=== PATIENT | female | born 1995 | race Caucasian/White ===

== ENCOUNTER 2023-08-21 16:39 | Emergency (ER) | payer MEDICARE, MEDICAID, SELFPAY ==
[2023-08-21 16:50] VITALS: BP 119/61; BP 136/82; PULSE 112; PULSE 114; RESP 18; TEMP 36.5; O2SAT 100; O2SAT 99; BMI 36.5
--- NOTE | 2023-08-21 16:50 | ED.ALLEREA ---
HPI - Allergic Reaction General Chief complaint: Allergic Reaction Stated complaint: ALLERGIC REACTION Time Seen by Provider: 08/21/23 16:46 Source: patient Mode of arrival: EMS Limitations: no limitations History of Present Illness ED Provider: fay HPI narrative: Patient history of significant allergic reactions secondary to pollens entries outside last severe reaction was 2 years ago side noticed tingling of the lips with facial swelling similar to that in the past had difficulty in breathing took 2 Benadryl 4 hours ago and EpiPen just prior to arrival EMS gave another IV 25 mg of Benadryl and albuterol treatment, patient is started feeling better Related Data Allergies Allergy/AdvReac Type Severity Reaction Status Date / Time el[place] [cherries] Allergy Unknown Verified 08/21/23 16:54 shellfish derived Allergy Anaphylaxis Verified 08/21/23 16:54 tree and shrub pollen Allergy Unknown Verified 08/21/23 16:54 Review of Systems Review of Systems: Yes all other systems are reviewed and are negative PMFSH Social History Social History Advance Directives: No Advance Directives Information Provided: No Physical Exam ED Vital Signs: Vital Signs - 24 hr 08/21/23 16:50 08/21/23 17:22 08/21/23 18:13 Temperature 97.7 F 98.1 F 98.5 F Pulse Rate 112 H 105 H 102 H Respiratory Rate 18 14 20 Blood Pressure 119/61 117/61 121/65 Pulse Oximetry 99 93 99 Oxygen Delivery Method Room Air Room Air Room Air BMI result Body Mass Index 36.5 Appearance: Alert. Oriented X3. No acute distress. Eyes: PERRLA, No Nystagmus ENT: Pharynx normal. Oral Mucosa moist normal lives normal uvula no stridor Neck: Normal inspection. Neck supple. CVS: Normal heart rate and rhythm. Pulses normal. Respiratory: No respiratory distress. Equal air entry bilateral, no wheezing/rales/rhonchi Abdomen: Soft and nontender. Bowel sounds are present, no mass palpable, no CVA tenderness Skin: Skin warm and dry. Normal skin color. Normal skin turgor. Extremities: No lower extremity edema. No calf tenderness Neuro: Oriented X 3. Medical Decision Making Medical Decision Making MDM Narrative: Patient's allergic reaction degrees came here for similar duration upon arrival only slight itching and subjective tingling of the lip noticed already received EpiPen at home will discharge patient home advised to follow with PCP and keep an eye on reaction Discharge Plan Discharge Clinical Impression: Allergic reaction Patient Disposition: Home, Self-Care Instructions: General Allergic Reaction (ED) Additional Instructions: Care and cautions as adv Continue medication as prescribed by your specialist Discharge Date/Time: 08/21/23 18:17 Print Language: Persian
[2023-08-21 17:22] VITALS: BP 117/61; PULSE 105; RESP 14; TEMP 36.7; O2SAT 93
[2023-08-21 18:13] VITALS: BP 121/65; PULSE 102; RESP 20; TEMP 36.9; O2SAT 99
== END 2023-08-21 18:17 | disposition home or self-care (01) ==
PROVIDERS: Emergency Provider Internal Medicine
DX: L50.0 Allergic urticaria (principal); R06.02 Shortness of breath
CPT/HCPCS: 99283

== ENCOUNTER 2024-05-02 18:53 | Emergency (ER) | payer MEDICARE, MEDICAID, SELFPAY ==
[2024-05-02 19:57] VITALS: BP 135/89; PULSE 96; RESP 16; TEMP 36.3; O2SAT 99; BMI 35.1
--- NOTE | 2024-05-02 19:58 | ED_ITS ---
HPI - Headache General Chief Complaint: Headache Stated Complaint: Migraine 8 days Related Data Allergies Allergy/AdvReac Type Severity Reaction Status Date / Time amphetamine [From Adderall] Allergy Swelling Verified 05/02/24 19:58 azathioprine [From Imuran] Allergy Swelling Verified 05/02/24 19:58 bupropion [From Wellbutrin] Allergy Swelling Verified 05/02/24 19:58 [place]more [cherries] Allergy Unknown Verified 05/02/24 19:58 dextroamphetamine Allergy Swelling Verified 05/02/24 19:58 [From Adderall] lisdexamfetamine Allergy Swelling Verified 05/02/24 19:58 [From Vyvanse] lorazepam [From Ativan] Allergy Swelling Verified 05/02/24 19:58 methylphenidate Allergy Swelling Verified 05/02/24 19:58 [From Concerta] shellfish derived Allergy Anaphylaxis Verified 05/02/24 19:58 tree and shrub pollen Allergy Unknown Verified 05/02/24 19:58 [facility] Social History Social History Advance Directives: No Advance Directives Information Provided: No Do you have a plan to hurt others: No Plan Physical Exam Vital Signs: Vital Signs: Last Vital Signs Temp 97.4 F 05/02/24 19:57 Pulse 96 05/02/24 19:57 Resp 16 05/02/24 19:57 BP 135/89 05/02/24 19:57 Pulse Ox 99 05/02/24 19:57 O2 Del Method Room Air 05/02/24 19:57 BMI result Body Mass Index 35.1 Course Course Course Narrative: This is a Rapid Medical Examination (RME) performed by Melecio Don PA-C in triage. Full HPI, ROS, assessment and treatment plan per primary provider in the Main ED. 28 yo female hx migraines here for eval of migraine x7-8 days. typically takes tramadol, trialed this last week with improvement however cannot take this and go to work so she has not been taking it consistently. +photo and phonofobia. no trauma/injury. saw pcp - tested negative for covid/ flu/ rsv Plan: labs, ct Reevaluation(s) Reevaluation #1: Patient left the emergency department before myself or any of the other clinicians could review or explain physical exam findings, test results, need or lack there of for additional testing, treatment options, or a treatment plan. Discharge Plan Discharge Clinical Impression: Migraine Patient Disposition: Left W/O Completing Treatment Discharge Date/Time: 05/02/24 22:59
--- OUTSIDE RECORDS SUMMARY | 2024-05-02 21:55 | XMS_ITS | Data Portability ---
Author Organization [facility], [id number] Address [address] [place] [address] Care Team Providers Care Dna Analyst Name Role Phone [facility] Primary Care Provider [phone] Assessment No assessment recorded. Plan of Treatment Reminders Order Date Submit Date Provider Last Modified By Organization Details Last Modified Time Details Appointments None recorded. Lab None recorded. Referral None recorded. Procedures None recorded. Surgeries None recorded. Imaging None recorded. Medication Orders Aplisol 5 tub. unit/0.1 mL intradermal injection solution 2023 024 [email or web address] [facility]/Pharmacy #[id number], [address] [place], [address], 4 19:52:41 naproxen 500 mg tablet 2022 023 [facility]/Pharmacy #[id number], [address] [place], [address], 3 09:29:51 fexofenadin e-pseudoeph edrine ER 180 mg-240 mg tablet,ext. release 24 hr 2022 023 [email or web address] [facility]/Pharmacy #[id number], [address] [place], [address], 3 08:45:54 prednisone 20 mg tablet 2022 023 [facility]/Pharmacy #[id number], [address] [place], [address], 3 08:43:12 Patient TargetsNo targets recorded. Patient Instructions Encounter Date Encounter Id Patient Instructions Last Modified By Organization Details Last Modified Time 05/10/2022 [id number] An ear infection may start with a cold and affect the middle ear (otitis media). It can hurt a lot. Most ear infections clear up on their own in a couple of days and do not need antibiotics. Also, antibiotics do not work against viruses, which may be the cause of your infection. Regular doses of pain relievers are the best way to reduce your fever and help you feel better. How can you care for yourself at home? Take pain medicines exactly as directed. If the doctor gave you a prescription medicine for pain, take it as prescribed. If you are not taking a prescription pain medicine, take an vhwn-yid-kdczauy medicine, such as acetaminophen (Tylenol), ibuprofen (Advil, Motrin), or naproxen (Aleve). Read and follow all instructions on the label. Do not take two or more pain medicines at the same time unless the doctor told you to. Many pain medicines have acetaminophen, which is Tylenol. Too much acetaminophen (Tylenol) can be harmful. Plan to take a full dose of pain reliever before bedtime. Getting enough sleep will help you get better. Try a warm, moist face cloth on the ear. It may help relieve pain. If your doctor prescribed antibiotics, take them as directed. Do not stop taking them just because you feel better. You need to take the full course of antibiotics. Not available 05/10/2022 08:37:03 Sinusitis is an infection of the lining of the sinus cavities in your head. Sinusitis often follows a cold. It causes pain and pressure in your head and face. In most cases, sinusitis gets better on its own in 1 to 2 weeks. But some mild symptoms may last for several weeks. Sometimes antibiotics are needed. if you are having problems. It's also a good idea to know your test results and keep a list of the medicines you take. How can you care for yourself at home? Take an avsq-fgx-pzitufq pain medicine. Avoid Ibuprofen, Aleve and Aspirin if . If the doctor prescribed antibiotics, take them as directed. Do not stop taking them just because you feel better. You need to take the full course of antibiotics. Be careful when taking zxsc-jot-ipuvmtj cold or influenza (flu) medicines and Tylenol at the same time. Many of these medicines have acetaminophen, which is Tylenol. Read the labels to make sure that you are not taking more than the recommended dose. Too much acetaminophen (Tylenol) can be harmful. Breathe warm, moist air from a steamy shower, a hot bath, or a sink filled with hot water. Avoid cold, dry air. Using a humidifier in your home may help. Follow the directions for cleaning the machine. Use saline (saltwater) nasal washes. This can help keep your nasal passages open and wash out mucus and bacteria. You can buy saline nose drops at a grocery store or drugstore. Or you can make your own at home by adding 1 teaspoon (5 millilitres) of salt and 1 teaspoon (5 millilitres) of baking soda to 2 cups (500 mL) of distilled water. If you make your own, fill a bulb syringe with the solution, insert the tip into your nostril, and squeeze gently. Blow your nose. Put a hot, wet towel or a warm gel pack on your face 3 or 4 times a day for 5 to 10 minutes each time. Try a decongestant nasal spray like oxymetazoline (Drixoral). Do not use it for more than 3 days in a row. Using it for more than 3 days can make your congestion worse. Not available 05/10/2022 08:36:53 08/26/2022 [id number] wrist sprain: ca re instructions [email or web address] Not available 08/26/2022 09:30:59 Reason for Referral None Reported. Problems Name Problem SNOMED Code Status Onset Date Resolution Date Notes Provider Name and Address Organization Details Recorded Time Polycystic ovary syndrome 356650481 Active 2022 MERARI CASTANEDA null, PA - [facility] 3 08:49:22 Postural orthostatic tachycardia syndrome 699467593 Active 2022 Teresa Leonard null PA - [facility] 3 08:17:41 Crohn's disease 63610014 Active 2022 Teresagissel Leonard null, PA - [facility] 3 08:17:52 Posttraumatic stress disorder 93194384 Active 2022 Teresa Aisha null, PA - [facility] 3 08:17:56 Asthma 409226868 Active 2022 Teresa [place] null, PA - [facility] 3 08:18:00 Depressive disorder 96843052 Active 2022 Teresa [place] null, PA - [facility] 3 08:18:15 Anxiety 33507597 Active 2022 Teresa [place] null, PA - [facility] 3 08:18:22 Problem Notes None recorded. Procedures Surgical History Date Name Laterality Status Provider Name and Address Organization Details Recorded Time Knee arthroscopy/surg hamida completed Teresa [place] PA - [facility] 05/10/2022 08:18:52 procedure on lymph node completed Teresa [place] PA - [facility] 05/10/2022 08:19:03 reduction rhinoplasty completed Teresa [place] PA - [facility] 05/10/2022 08:19:13 hernia repair completed Teresa Aisha PA - [facility] 05/10/2022 08:19:21 Imaging Results None recorded. Procedure Notes None recorded. Medical Equipment None Reported. Allergies Allergen ID Allergen Name Allergen Category Reaction Reaction Severity Criticality Documentation Date Start Date Code Code System Note Provider Name and Address Organization Details Recorded Time 389436 clonidine medicatio n anaphylax is Not available [facility] 05/10/2022 2599 RxNorm Teresa Aisha null, PA - [facility] 3 08:14:34 [id number] [place] allergeni c extract food,medi cation angioedem a Not available Not available 08/26/2022 40916 1 RxNorm MERARI TONYA null, PA - [facility] 3 08:44:18 000772 Humira medicatio n other Not available Not available 08/26/2022 62938 4 RxNorm MERARI TONYA null, PA - [facility] 3 08:44:40 [id number] Imuran medicatio n other Not available Not available 08/26/202290509 9 RxNorm MERARI TONYA null, PA - [facility] 3 08:45:00 Medications Name Sig Start Date Stop Date Status Note LastModified by Organization Details LastModified Time BD Regular Bevel [place] 27 gauge x 1/2 active Not Available Not Available Not Available verapamil ER (SR) 120 mg tablet,ex tended release TAKE 1 TABLET BY MOUTH EVERYDAY AT BEDTIME 05/10 completed Not Available Not Available Not Available amoxicill in 500 mg capsule TAKE 2 CAPSULES (1,000 MG TOTAL) BY MOUTH DAILY FOR 9 DAYS. active Not Available Not Available No t Available metformin 500 mg tablet TAKE 1 TABLET BY MOUTH EVERY DAY 08/26 completed Not Available Not Available Not Available prednison e 10 mg tablet PLEASE SEE ATTACHED FOR DETAILED DIRECTIO NS active Not Available Not Available No t Available verapamil ER 360 mg 24 hr capsule,e xtended release TAKE 1 CAPSULE (360 MG TOTAL) BY MOUTH NIGHTLY AT BEDTIME. active Not Available Not Available No t Available trazodone 50 mg tablet TAKE 1/2 A TABLET BY MOUTH DAILY NEEDED AT BEDTIME active Not Available Not Available No t Available cetirizin e 10 mg tablet TAKE 1 TABLET BY MOUTH EVERY DAY IN THE MORNING active Not Available Not Available No t Available azithromy stone 250 mg tablet TAKE 1 TABLET BY MOUTH DAILY FOR 4 DAYS. 05/10 completed Not Available Not Available Not Available benzonata te 200 mg capsule TAKE 1 CAPSULE BY MOUTH THREE TIMES A DAY NEEDED 05/10 completed Not Available Not Available Not Available valacyclo vir 1 gram tablet TAKE 1 TABLET BY MOUTH THREE TIMES A DAY FOR 10 DAYS active Not Available Not Available No t Available prazosin 1 mg capsule TAKE 1 TO 2 CAPSULES BY MOUTH AT BEDTIME active Not Available Not Available No t Available sucralfat e 100 mg/mL oral suspensio n TAKE 10 ML (1 G TOTAL) BY MOUTH 4 (FOUR) TIMES A DAY FOR 7 DAYS. active Not Available Not Available No t Available promethaz ine 12.5 mg tablet TAKE 1 TABLET BY MOUTH EVERY 6 HOURS NEEDED FOR NAUSEA. active Not Available Not Available No t Available FreeStyle Lancets 28 gauge USE TWICE DAILY DIRECTED FOR MONITORI NG GLUCOSE active Not Available Not Available No t Available famotidin e 40 mg tablet TAKE 1 TABLET BY MOUTH TWICE A DAY active Not Available Not Available No t Available Aplisol 5 tub. unit/0.1 mL intraderm al injection solution Inject 0.1 mL by intrader mal route. 2023 active Billable units for PPD is one. Units are not the dose. Not Available Not Available Not Available prednison e 20 mg tablet TAKE 2 TABLETS BY MOUTH EVERY DAY FOR 4 DAYS active Not Available Not Available No t Available BD Insulin Syringe 1 mL 25 gauge x 5/8 USE 1 SYRINGE TO INJECT SUBCUTAN EOUSLY B 12 ONCE EVERY 30 DAYS active Not Available Not Available No t Available Pregnyl 10,000 unit intramusc ular solution active Not Available Not Available Not Available metformin 850 mg tablet TAKE 1 TABLET BY MOUTH EVERY DAY active Not Available Not Available No t Available topiramat e 25 mg tablet TAKE 1 TAB NIGHTLY FOR 1 WEEK THEN INCREASE TO 1 TAB IN AM & 1 IN PM active Not Available Not Available No t Available hydroxyzi ne HCl 50 mg tablet TAKE 1 TABLET EVERY DAY NEEDED active Not Available Not Available No t Available acetamino phen 300 mg-codein e 30 mg tablet TAKE 1 TABLET BY MOUTH EVERY 8 HOURS FOR 7 DAYS 05/10 completed Not Available Not Available Not Available quetiapin e 100 mg tablet TAKE 1 TABLET BY MOUTH EVERYDAY AT BEDTIME active Not Available Not Available No t Available acetamino phen 500 mg tablet TAKE 2 TABLETS BY MOUTH 3 TIMES A DAY NEEDED FOR PAIN FOR 10 DAYS active Not Available Not Available No t Available lidocaine -prilocai ne 2.5 %-2.5 % topical cream APPLY TO PORT EXTERNAL LY EVERY 4 WEEKS BEFORE INFUSION S active Not Available Not Available No t Available lamotrigi ne 25 mg tablet TAKE 3 TABLETS BY MOUTH TWICE A DAY active Not Available Not Available No t Available verapamil ER 180 mg 24 hr capsule,e xtended release TAKE 1 CAPSULE BY MOUTH NIGHTLY AT BEDTIME. active Not Available Not Available No t Available oxycodone -acetamin ophen 5 mg-325 mg tablet Take 1 tablet every 6 hours by oral route. active Not Available Not Available No t Available hydrocort isone 2.5 % topical cream with perineal applicato r APPLY RECTALLY TWICE A DAY FOR 14 DAYS active Not Available Not Available No t Available famotidin e 20 mg tablet TAKE 1 TABLET BY MOUTH TWICE A DAY active Not Available Not Available No t Available hydrocort isone-apolinar tic acid 1 %-2 % ear drops INSTILL 2 DROPS INTO AFFECTED EAR(S) 4 TIMES A DAY active Not Available Not Available No t Available trazodone 100 mg tablet TAKE 2 TABLETS BY MOUTH AT BEDTIME active Not Available Not Available No t Available baclofen 10 mg tablet TAKE 1/2 TABLET (5MG) BY MOUTH 2 TIMES A DAY.TAKE BEFORE MEALS active Not Available Not Available No t Available benzonata te 100 mg capsule TAKE 1 CAPSULE BY MOUTH THREE TIMES A DAY NEEDED FOR COUGH 05/10 completed Not Available Not Available Not Available hyoscyami ne sulfate 0.125 mg tablet TAKE 4 TABLETS BY MOUTH ONCE A DAY FOR 1 DAY 05/10 completed Not Available Not Available Not Available cyanocoba yumiko (vit B-12) 1,000 mcg/mL injection solution INJECT 1 ML (1000 MCG TOTAL) UNDER THE SKIN EVERY 30 DAYS active Not Available Not Available No t Available oseltamiv ir 75 mg capsule TAKE 1 CAPSULE BY MOUTH TWO TIMES A DAY active Not Available Not Available No t Available esomepraz ole magnesium 40 mg capsule,d elayed release TAKE 1 CAPSULE BY MOUTH TWICE A DAY FOR 30 DAYS active Not Available Not Available No t Available prednison e 50 mg tablet TAKE 1 TABLET BY MOUTH EVERY DAY FOR 5 DAYS active Not Available Not Available No t Available hyoscyami ne 0.125 mg sublingua l tablet TAKE 4 TABLETS DISSOLVE D IN MOUTH.BR ING TO RADIOLOG Y APPT WITH YOU 05/10 completed Not Available Not Available Not Available betametha sone dipropion ate 0.05 % topical cream APPLY TO AFFECTED AREA DAILY DIRECTED active Not Available Not Available No t Available mont[address]uka st 10 mg tablet TAKE 1 TABLET BY MOUTH EVERY DAY active Not Available Not Available No t Available epinephri ne 0.3 mg/0.3 mL injection , auto-inje ctor USE DIRECTED FOR ANAPHYLA XIS AND CALL 911 NEEDED active Not Available Not Available No t Available albuterol sulfate HFA 90 mcg/actua tion aerosol inhaler INHALE 2 PUFFS BY MOUTH INTO LUNGS EVERY 4 HOURS active Not Available Not Available No t Available BD Luer-Divine Syringe 3 mL 18 x 1 1/2 active Not Available Not Available Not Available fludrocor tisone 0.1 mg tablet TAKE 1 TABLET BY MOUTH EVERY DAY active Not Available Not Available No t Available lamotrigi ne 100 mg tablet TAKE 1 TABLET BY MOUTH EVERYDAY AT BEDTIME active Not Available Not Available No t Available Clomid 50 mg tablet active Not Available Not Available No t Available prazosin 2 mg capsule TAKE 1 CAPSULE BY MOUTH EVERYDAY AT BEDTIME active Not Available Not Available No t Available naproxen 500 mg tablet Take 1 tablet twice a day by oral route as directed for 10 days. 2022 active Not Available Not Available Not Avai lable metoclopr amide 10 mg tablet TAKE 1 TABLET BY MOUTH UP TO 4 TIMES A DAY active Not Available Not Available No t Available verapamil ER 240 mg 24 hr capsule,e xtended release TAKE 1 CAPSULE BY MOUTH EVERY DAY AT NIGHT AT BEDTIME (240 MG TOTAL) active Not Available Not Available No t Available amoxicill in 875 mg-potass ium clavulana te 125 mg tablet TAKE 1 TABLET BY MOUTH EVERY 12 HOURS FOR 7 DAYS 05/10 completed Not Available Not Available Not Available oxycodone 5 mg tablet 08/26 completed Not Available Not Available Not Available neomycin- polymyxin -hydrocor t 3.5 mg-10,000 unit/mL-1 % ear drops,issac p INSTILL 4 DROPS INTO AFFECTED EAR(S) 3 TIMES PER DAY FOR 7 active Not Available Not Available No t Available cyclobenz aprine 5 mg tablet TAKE 1 TABLET (ORAL) 3 TIMES PER DAY (MUSCLE SPASM) FOR 10 DAYS active Not Available Not Available No t Available Ovidrel 250 mcg/0.5 mL subcutane ous syringe active Not Available Not Available Not Available Alcohol Prep Pads USE TWICE DAILY DIRECTED FOR MONITORI NG GLUCOSE active Not Available Not Available No t Available duloxetin e 30 mg capsule,d elayed release TAKE 1 CAPSULE ALONG WITH THE 60 MG FOR A TOTAL DAILY DOSE OF 90 MG active Not Available Not Available No t Available duloxetin e 60 mg capsule,d elayed release TAKE 1 CAPSULE BY MOUTH EVERY DAY IN THE MORNING active Not Available Not Available No t Available Molly-D 24 Hour 180 mg-240 mg tablet,ex tended release TAKE 1 TABLET BY MOUTH EVERY EVENING FOR 10 DAYS 08/26 completed Not Available Not Available Not Available sodium chloride 1,000 mg soluble tablet TAKE 1 TABLET BY MOUTH 3 TIMES A DAY. active Not Available Not Available No t Available paliperid one ER 6 mg tablet,ex tended release 24 hr TAKE 1 TABLET BY MOUTH EVERY DAY AT NIGHT 05/10 completed Not Available Not Available Not Available FreeStyle Lite Meter kit USE TWICE DAILY DIRECTED FOR MONITORI NG GLUCOSE active Not Available Not Available No t Available FreeStyle Lite Strips USE TWICE DAILY DIRECTED FOR MONITORI NG GLUCOSE active Not Available Not Available No t Available Entyvio 300 mg intraveno us solution active Not Available Not Available Not Available Breo Ellipta 200 mcg-25 mcg/dose powder for inhalatio n TAKE 1 PUFF BY MOUTH EVERY DAY active Not Available Not Available No t Available Skyrizi 360 mg/2.4 mL (150 mg/mL) subcutane ous wearable injector active Not Available Not Available Not Available Voquezna 10 mg tablet TAKE 1 TABLET BY MOUTH EVERY DAY active Not Available Not Available No t Available Vitals Date Recorded Body height Body mass index (BMI) Body weight Pain severity - 0-10 verbal numeric rating [Score] - Reported Oxygen saturation Oxygen saturation in Arterial blood by Pulse oximetry Heart rate Respiratory rate Body temperature Systolic blood pressure Diastolic blood pressure Provider Name and Address Organization Details Last Updated DateTime 3 160.02 cm 35.4 kg/m2 07215.4 7 g 8 99 % 99 % 94 /min 18 /min 98.1 [degF] 133 mm[Hg] 88 mm[Hg] MERARI CASTANEDA PA - [facility] 3 08:52:53 Date Recorded Body height Body mass index (BMI) Body weight Pain severity - 0-10 verbal numeric rating [Score] - Reported Respiratory rate Body temperature Heart rate Oxygen saturation Oxygen saturation in Arterial blood by Pulse oximetry Systolic blood pressure Diastolic blood pressure Provider Name and Address Organization Details Last Updated DateTime 3 160.02 cm 35.1 kg/m2 95887.2 9 g 0 18 /min 97.7 [degF] 98 /min 98 % 98 % 116 mm[Hg] 62 mm[Hg] Teresa Leonard PA [email or web address] [facility] 3 08:21:03 Social History Question Answer Notes LastModified by Organizat ion Details LastModified Time Tobacco Smoking Status Never Smoker Teresa zuñiga PA - [facility] 05/10/2022 08:18:44 What Is Your Level Of Alcohol Consumption? None Information not available 05/10/2022 Have You Had Direct Contact, Or Contact During Intimacy, With Monkeypox Rash, Scabs, Or Body Fluids From A Person With Monkeypox? No Information not available 05/10/2022 Do You Use Any Illicit Or Recreational Drugs? No Information not available 05/10/2022 Have You Recently Traveled Abroad? No Information not available 05/10/2022 Do You Or Have You Ever Used Any Other Forms Of Tobacco Or Nicotine? No Information not available 05/10/2022 Sex: Unknown Functional Status None recorded. Mental Status None recorded. Family History Relationship Description Onset Age of this Age Resolved Age Notes LastModified by Organization Details LastModified Time Father No current problems or disability Not available 05/10 08:18:27 Mother No current problems or disability Not available 05/10 08:18:27 Medical History No medical history recorded. Gynecological History Statement/Question Response Date of LMP 08/21/2022 Is there any chance of ? No Obstetrics History GPAL:G 0 P 0 0 0 0 Immunizations Vaccine Type Date Status Note Provider Nam e and Address Organization Details Recorded Time Influenza, split virus, quadrivalent, preservative 8 completed Teresa [place] null, PA - [facility] 05/10/2022 08:14:00 Influenza, split virus, quadrivalent, preservative 0 completed Teersa [place] null, PA - [facility] 05/10/2022 08:14:00 Hib, unspecified formulation 5 completed Teresa [place] null, PA - [facility] 05/10/2022 08:14:00 Hib, unspecified formulation 5 completed Teresa Aisha null, PA - [facility] 05/10/2022 08:14:00 Hib, unspecified formulation 6 completed Teresa Aisha null, PA - [facility] 05/10/2022 08:14:00 Hib, unspecified formulation 5 completed Teresa [place] null, PA - [facility] 05/10/2022 08:14:00 MMR 0 completed Teresa [place] null, PA - [facility] 05/10/2022 08:14:00 MMR 6 completed Teresa [place] null, PA - [facility] 05/10/2022 08:14:00 COVID-19, mRNA, LNP-S, PF, 30 mcg/0.3 mL dose 1 completed Teresa [place] null, PA - [facility] 05/10/2022 08:14:00 COVID-19, mRNA, LNP-S, PF, 30 mcg/0.3 mL dose 1 completed Teresa [place] null, PA - [facility] 05/10/2022 08:14:00 COVID-19, mRNA, LNP-S, PF, 30 mcg/0.3 mL dose 1 completed Teresa [place] null, PA - [facility] 05/10/2022 08:14:00 COVID-19, mRNA, LNP-S, PF, 30 mcg/0.3 mL dose, felicity-sucrose 2 completed Teresa [place] null, PA - [facility] 05/10/2022 08:14:00 pneumococcal polysaccharide PPV23 4 completed Teresa [place] null, PA - [facility] 05/10/2022 08:14:00 influenza, unspecified formulation 8 completed Teresa [place] null, PA - [facility] 05/10/2022 08:14:00 influenza, unspecified formulation 7 completed Teresa Aisha null, PA - [facility] 05/10/2022 08:14:00 Tdap 9 completed Teresa Aisha null, PA - [facility] 05/10/2022 08:14:01 varicella 0 completed Teresa Aisha null, PA - [facility] 05/10/2022 08:14:01 DTP 0 completed Teresa [place] null, PA - [facility] 05/10/2022 08:14:01 DTP 5 completed Teresa Aisha null, PA - [facility] 05/10/2022 08:14:01 DTP 5 completed Teresa [place] null, PA - [facility] 05/10/2022 08:14:01 DTP 6 completed Teresa [place] null, PA - [facility] 05/10/2022 08:14:01 DTP 5 completed Teresa Aisha null, PA - [facility] 05/10/2022 08:14:01 Hep B, unspecified formulation 5 completed Teresa Aisha null, PA - [facility] 05/10/2022 08:14:01 Hep B, unspecified formulation 5 completed Teresa Aisha null, PA - [facility] 05/10/2022 08:14:01 Hep B, unspecified formulation 5 completed Teresa [place] null, PA - [facility] 05/10/2022 08:14:01 OPV 0 completed Teresa Aisha null, PA - [facility] 05/10/2022 08:14:01 OPV 5 completed Teresa [place] null, PA - [facility] 05/10/2022 08:14:01 OPV 5 completed Teresa Aisha null, PA - [facility] 05/10/2022 08:14:01 OPV 5 completed Teresa [place] null, PA - [facility] 05/10/2022 08:14:01 HPV, unspecified formulation 8 completed Teresa [place] null, PA - [facility] 05/10/2022 08:14:01 pneumococcal, unspecified formulation 4 completed Teresa Aisha null, PA - [facility] 05/10/2022 08:14:01 Influenza, split virus, trivalent, preservative 2 completed Teresa [place] null, PA - [facility] 05/10/2022 08:14:01 Influenza, split virus, trivalent, preservative 9 completed Teresa [place] null, PA - [facility] 05/10/2022 08:14:01 Influenza, split virus, trivalent, preservative 0 completed Teresa Aisha null, PA - [facility] 05/10/2022 08:14:01 Influenza, split virus, trivalent, PF 1 completed Teresa Aisha null, PA - [facility] 05/10/2022 08:14:01 Influenza, split virus, trivalent, PF 3 completed Teresa [place] null, PA - [facility] 05/10/2022 08:14:01 Influenza, split virus, trivalent, PF 4 completed Teresa [place] null, PA - [facility] 05/10/2022 08:14:01 HPV, quadrivalent 9 completed Teresa Aisha null, PA - [facility] 05/10/2022 08:14:01 HPV, quadrivalent 9 completed Teresa Aisha null, PA - [facility] 05/10/2022 08:14:01 Td (adult), 2 Lf tetanus toxoid, preservative free, adsorbed 9 completed Teresa Aisha null, PA - [facility] 05/10/2022 08:14:01 meningococcal MCV4P 9 completed Teresa Aisha null, PA - [facility] 05/10/2022 08:14:01 Influenza, split virus, quadrivalent, PF 2 completed Teresa Aisha null, PA - [facility] 05/10/2022 08:14:01 Influenza, split virus, quadrivalent, PF 1 completed Teresa [place] null, PA - [facility] 05/10/2022 08:14:01 Influenza, split virus, quadrivalent, PF 9 completed Teresa Aisha null, PA - [facility] 05/10/2022 08:14:01 Influenza, split virus, quadrivalent, PF 7 completed Teresa Aisha null, PA - [facility] 05/10/2022 08:14:01 Influenza, split virus, quadrivalent, PF 6 completed Teresa Aisha null, PA - [facility] 05/10/2022 08:14:01 Influenza, split virus, quadrivalent, PF 5 completed Teresa [place] null, PA - [facility] 05/10/2022 08:14:01 Influenza, split virus, quadrivalent, PF 0 completed Teresa Aisha null, PA - [facility] 05/10/2022 08:14:01 Past Encounters Encounter ID Performer Location Encounter Start Date Encounter Closed Date Diagnosis/Indication Diagnosis SNOMED-CT Code Diagnosis ICD10 Code Diagnosis Note [id number] [address] [facility] [address] 05/25/2019 16:32:04 05/25/2019 19:14:19 [id number] [address] [facility] [place] [address] 06/14/2017 12:35:22 06/14/2017 13:55:30 [id number] [address] [facility] [place] [address] 09/24/2018 08:44:05 09/24/2018 09:49:32 [id number] [address] [facility] [place] [address] 05/08/2018 08:15:41 05/08/2018 08:55:05 [id number] [address] [facility] [place] [address] 02/22/2019 08:15:53 02/22/2019 08:34:03 [id number] [address] [facility] [place] [address] 05/15/2018 08:08:15 05/15/2018 08:33:18 [id number] [address] [facility] [place] [address] 09/28/2018 13:41:41 09/28/2018 14:37:22 [id number] [address] [place] [address] 08/22/2018 15:47:12 08/22/2018 16:28:46 [id number] 20[address] Eric Sofia [address] [place] [address] 10/07/2020 16:37:23 10/07/2020 18:23:32 [id number] Johny Lewis NP 20995_Chi [facility] rojelior [address] [place] [address] 05/10/2022 08:06:49 05/10/2022 08:48:30 Acute sinusitis [id number] J01.90 Acute sero us otitis media of bilateral ears [id number] H65.03 [id number] Yoli Coley MD [address] [facility] [address] [place] [address] 08/26/2022 08:17:45 08/26/2022 09:51:39 Pain of left wrist [id number] M25.532 Likely a sprain with inflammati on of the wrist causing some nerve compressio n as the distributi on of pain is median nerve and similar to carpal tunnel.Nile l treat conservati vely with wrist split, Nsaids, and follow up ortho if no improvemen t.pain is also Ulnar side, if continues will need to rule out TFCC ligament injury [id number] NICK BURNETT [address] [address] 01/19/2024 14:31:23 01/19/2024 15:14:55 Tuberculosis screening [id number] Z11.1 Health Concerns Section Related Observation LastModified by Organization Detai ls LastModified Time None Recorded Concern Status LastModified by Organization Details LastModified Time None Recorded Advance Directives Directive None Recorded Payers Encounter Date Sequence Insurance Name Policy Number Policy Aguirre Covered Member ID Aguirre Member ID Guarantor Name 05/25/2019 1 [place] [employer] Marichuy Wolf [id number] Marichuy Wolf 10/07/2020 1 [place] [employer] Marichuy Wolf [id number] Marichuy Wolf 05/10/2022 1 [place] [facility] Marichuy Wolf [id number] Marichuy Wolf 05/10/2022 2 [place] [facility] Marichuy Damon [id number] Marichuy Wolf 08/26/2022 1 [place] [facility] Marichuy Wolf [id number] Marichuy Wolf 08/26/2022 2 [place] [facility] Marichuy Damon [id number] Marichuy Wolf 01/19/2024 [employer] [id number] Marichuy Wolf Notes Date Note Type Note Provider Name and Address Organization Details Recorded Time 05/10/2022 text/html CongestionReport ed bypatient.Notes:left ear pain and pressure, nasal congestion with post nasal drip x 2 weeks. denies any fever or fever with chills. no SOB or respiratory distress.Ear Pain Brief HPIReported bypatient.Location:pain radiates to neck; bilateral Onset/Timing:intermitte nt pain; gradual onset Duration:occurs daily; sensation/episode variable length Quality:aching pain;sharp pain Severity:getting worse; current pain 5/10 Context:recent ear infection Alleviating factors:ototopical antibiotics: ; nasal steroid spray Aggravating factors:sinus infections; allergies; irrigation of ear Associated Symptoms:Cough;nasal congestion;nasal discharge Johny Lewis NP [address] [email or web address] [place], [address], [place] - [facility] 05/10/2022 08:37:31 OBGyn Episode No OBEpisode recorded.
== END 2024-05-02 22:59 | disposition left against medical advice (07) ==
PROVIDERS: Emergency Provider Emergency Medicine
DX: G43.909 Migraine, unspecified, not intractable, without status migrainosus (principal)
CPT/HCPCS: 99281